=== PATIENT | female | born 2000 | race Caucasian/White ===

== ENCOUNTER 2019-06-22 15:09 | Emergency (ER) | payer SELFPAY ==
[~2019-06-22] VITALS: Ht 162.6 cm; Wt 96.8 kg
[2019-06-22 15:24] VITALS: Ht 162.6 cm; Wt 96.8 kg
[2019-06-22] MEDS ORDERED: AUGMENTIN 875-11 TAB PO (16:57)
[2019-06-22 17:15] VITALS: BP 117/67
== END 2019-06-22 17:15 | disposition home or self-care (01) ==
LOC: D.ER 15:09
DX: J02.0 Streptococcal pharyngitis (principal); Z72.0 Tobacco use; R50.9 Fever, unspecified; R51 Headache